=== PATIENT | female | born 1990 | race African-American/Black ===

== ENCOUNTER 2017-06-15 12:49 | Inpatient (IN) ==
--- NOTE | 2017-06-15 13:15 | Emergency Department Note ---
Disposition Clinical Impression: Suicidal ideation Depression Qualifiers: Depression Type: unspecified Qualified Code(s): F32.9 - Major depressive disorder, single episode, unspecified Disposition: Admitted As Inpatient Condition: Fair Forms: ED Satisfaction Letter Time of Disposition: 15:37 Psych HPI - General Chief Complaint: ED Psychiatric Symptoms Stated Complaint: SI Time Seen by Provider: 06/15/17 13:09 Source: patient Mode of arrival: ambulatory Limitations: no limitations Nursing Notes Reviewed: Yes Vital Signs Reviewed: Yes - History of Present Illness HPI Narrative: 26-year-old with a history of some depression and previous drug abuse comes in stating that she feels her life falling apart she is depressed exposed. She is supposed to take Zoloft but cannot take it due to it causes her to have a racing heart. She states she has had no recent drug abuse. She feels depressed and states that she would like to inject herself with narcotics and kill herself. Pt complaint: suicidal ideation, feels depressed If medical clearance, reason: psychiatric condition Onset (ago): day(s) Duration: constant Improves with: none Worsens with: none Context: significant life stressor Alleged intoxication: No Associated Psychiatric Symptoms: depression, suicidal ideation Associated symptoms: Reports: denies other symptoms Traumatic symptoms: denies traumatic injury Treatments prior to arrival: none - Related Data Home Medications Medication Instructions Recorded Confirmed Etonogestrel [Nexplanon] 1 insert PERCUT DAILY 06/18/15 06/18/15 Previous Rx's Medication Instructions Recorded Mupirocin [Bactroban Oint] 1 appl TP BID #1 tube 01/25/16 Sulfamethoxazole/Trimeth DS 1 each PO BID #20 tablet 01/25/16 [Bactrim DS] Ciprofloxacin HCl [Cipro] 500 mg PO BID #14 tablet 03/14/16 Loratadine [Claritin] 10 mg PO DAILY #10 tablet 03/14/16 Phenazopyridine HCl [Pyridium] 200 mg PO TIDAC #6 tab 03/14/16 PredniSONE [Deltasone] 20 mg PO DAILY #15 tablet 03/14/16 Ranitidine Oral Soln [Zantac] 150 mg PO BID #10 mls 03/14/16 hydrOXYzine pamoate [HydrOXYzine 2 tab PO QID PRN #30 capsule 03/14/16 Pamoate] Gabapentin [Neurontin] 300 mg PO TID #9 capsule 03/30/16 Promethazine [Phenergan] 25 mg PO Q6HR #10 tablet 03/30/16 Sulfamethoxazole/Trimeth DS 1 each PO BID #20 tablet 03/30/16 [Bactrim DS] Cephalexin [Keflex] 750 mg PO BID #20 capsule 10/13/16 Ibuprofen [Motrin] 600 mg PO TID PRN #30 tab 10/13/16 Magic Mouthwash [Magic Mouthwash 10 ml PO QID PRN #240 ml 10/13/16 BLM] Ondansetron HCl [Zofran] 4 mg PO Q6H #15 tablet 10/13/16 Albuterol Sulfate [Albuterol 2 puff IH Q4HR PRN #1 hfa.aer.ad 11/12/16 Inhaler] Benzonatate [Tessalon] 100 mg PO TID #15 capsule 11/12/16 Doxycycline 100 mg PO BID 7 Days 11/12/16 Loratadine/Pseudophed (12 HR) 1 each PO BID #24 tab.er.12h 11/12/16 [Claritin D (12HR)] Magic Mouthwash [Magic Mouthwash 10 ml PO QID PRN #240 ml 11/12/16 BLM] Loratadine [Allergy Relief] 10 mg PO DAILY #30 tablet 05/30/17 Sulfamethoxazole/Trimeth DS 1 each PO BID #14 tablet 05/30/17 [Bactrim DS] Allergies Allergy/AdvReac Type Severity Reaction Status Date / Time Penicillins Allergy Hives Verified 06/15/17 12:53 All systems ED: reviewed and negative except as stated. Constitutional: Denies: fever, chills, weakness, weight change Eyes: Denies: eye pain, eye discharge, vision change ENT ED: Denies: ear pain, throat pain, dental pain, hearing loss, epistaxis, congestion, dysphagia Cardiovascular: Denies: chest pain, palpitations, dyspnea on exertion, edema, syncope Respiratory: Denies: cough, dyspnea, wheezes, hemoptysis, stridor Gastrointestinal: Denies: abdominal pain, nausea, vomiting, diarrhea, constipation, hematemesis, melena, hematochezia Genitourinary: Denies: dysuria, frequency, hematuria, discharge Musculoskeletal: Denies: back pain, neck pain, arthralgia, myalgia Integumentary: Denies: rash, abrasion, lesions Neurological: Denies: headache, weakness, numbness, paresthesias, confusion, abnormal gait, vertigo Psychiatric: Reports: depression, suicidal thoughts. Denies: anxiety, homicidal thoughts, auditory hallucinations, visual hallucinations Endocrine: Denies: fatigue Hematological/Lymphatic: Denies: easy bleeding, easy bruising Allergic/Immunologic: Denies: facial swelling, urticaria Past Medical History - Past Medical History Medical history: Reports: migraine, other Surgical history: Reports: no surgical history Psychiatric history: Reports: no psych history CYBER INSTRUCTOR history: Reports: no CYBER INSTRUCTOR history - Social History Smoking Status: Current every day smoker Smokeless Tobacco Status: No Alcohol use: Reports: occasionally Drug use: Reports: IV Drug Use Physical Exam - General Limitations: no limitations General appearance: alert - Head Head exam: atraumatic, normocephalic, normal inspection - Eye Eye exam: Present: normal appearance, PERRL, EOMI - ENT ENT exam: normal exam, normal oropharynx, mucous membranes moist - Neck Neck exam: Present: normal inspection, full ROM, trachea midline - Chest Chest inspection: Present: normal inspection, symmetric chest wall rise - Respiratory Respiratory exam: Present: normal lung sounds bilaterally - Cardiovascular Cardiovascular exam: Present: regular rate, normal rhythm, normal heart sounds - Abdominal Exam Abdominal exam: Present: soft, Non-Tender. Absent: tenderness, distention, guarding, rebound, rigidity - Extremities Exam Extremities exam: Present: normal inspection, full ROM. Absent: tenderness, pedal edema - Expanded Lower Extremity Exam Neurovascular/Tendon exam: Absent: motor deficit, sensory deficit, tendon deficit Gait: observed and normal - Back Exam Back exam: Present: normal inspection, full ROM. Absent: tenderness - Neurological Exam Neurological exam: Present: alert, oriented X3 - Psychiatric Psychiatric exam: Present: normal affect, normal mood - Skin Skin exam: Present: warm, dry, intact, normal color Course - Reevaluation(s) Reevaluation #1: 26-year-old history depression comes in with depression suicidal ideation. Patient does have a plan. Patient will be admitted. Time: 15:37 - Consultations Consultation #1: Discussed with1A, Dr. Alonso indicates the patient will be admitted. Time: 15:37 Vital Signs Temperature 98.4 F 06/15/17 12:53 Pulse Rate 93 08/01/17 12:53 Respiratory Rate 20 06/15/17 12:53 Blood Pressure 140/93 06/15/17 12:53 O2 Sat by Pulse Oximetry 100 06/15/17 12:53 Temperature 98.4 F 06/15/17 12:53 Pulse Rate 93 06/15/17 13:53 Respiratory Rate 20 06/15/17 13:53 Blood Pressure 140/93 06/15/17 13:53 O2 Sat by Pulse Oximetry 100 06/15/17 13:53 Oxygen Delivery Oxygen Delivery Room Air Psych - Lab Data Result diagrams: 06/15/17 13:22 06/15/17 13:22 Lab Results 06/15/17 06/15/17 06/15/17 Range/Units 13:04 13:04 13:22 WBC 9.1 (4.3-11.1) K/mcL RBC 4.40 (3.82-4.97) M/mcL Hgb 12.8 (11.5-15.4) g/dL Hct 39.2 (35.3-44.9) % MCV 89.1 (83.0-100.0) fL MCH 29.1 (28.0-33.3) pg MCHC 32.7 (31.6-35.5) g/dL RDW 13.3 (11.5-14.5) % Plt Count 234 (140-400) K/mcL MPV 9.5 (9.4-12.4) fL Immature Gran % 0.2 (0-4) % Seg Neutrophils % 67.4 % Lymphocytes % 19.5 % Monocytes % 9.4 % Eosinophils % 2.9 % Basophils % 0.6 % Neutrophils # 6.1 (1.6-8.9) K/mcL Lymphocytes # 1.8 (0.6-4.6) K/mcL Monocytes # 0.9 (0.0-1.3) K/mcL Eosinophils # 0.3 (0.0-0.6) K/mcL Basophils # 0.1 (0.0-0.2) K/mcL Sodium (136-145) mEq/L Potassium (3.5-4.5) mEq/L Chloride (98-109) mEq/L Carbon Dioxide (19-29) mEq/L BUN (7-20) mg/dL Creatinine (0.57-1.11) mg/dL Est GFR ( Amer) (> 60) Est GFR (Non-Af Amer) (> 60) BUN/Creatinine Ratio (6-26) Glucose (70-99) mg/dL Calculated Osmolality (280-300) Calcium (8.6-10.8) mg/dL Serum , Qual (Negative) Urine Color Yellow (Yellow) Urine Clarity Clear (Clear) Urine pH 6.0 (5.0-8.0) pH Units Ur Specific [place] 1.022 (1.010-1.025) Urine Protein Trace (Neg-Trace) mg/dL Urine Glucose (UA) Normal (Normal) mg/dL Urine Ketones Trace H (Negative) mg/dL Urine Blood Moderate H (Negative) Urine Nitrite Negative (Negative) Urine Bilirubin Small H (Negative) Urine Urobilinogen Normal (Normal) mg/dL Ur Leukocyte Esterase Trace H (Negative) Urine Microscopic RBC 5-15 H (0-3) per hpf Urine Microscopic WBC 5-15 H (0-3) per hpf Ur Squamous Epith Cells Many H (None-Few) per lpf Urine Bacteria None Seen (None-Few) per hpf Hyaline Casts Few (None-Few) per lpf Salicylates (15-30) mg/dL Urine Opiates Screen Negative (Ypixdd=662) ng/mL Acetaminophen (10-30) mcg/mL Ur Barbiturates Screen Negative (Ombnrw=356) ng/mL Ur Phencyclidine Scrn Negative (Cutoff=25) ng/mL Ur Amphetamines Screen Positive H (Jlcork=4237) ng/mL U Benzodiazepines Scrn Positive H (Bgvmsp=017) ng/mL Urine Cocaine Screen Positive H (Cutoff= 300) ng/mL U Marijuana (THC) Screen Positive H (Cutoff = 50) ng/mL Ethyl Alcohol (0-10) mg/dL 06/15/17 06/15/17 Range/Units 13:22 13:22 WBC (4.3-11.1) K/mcL RBC (3.82-4.97) M/mcL Hgb (11.5-15.4) g/dL Hct (35.3-44.9) % MCV (83.0-100.0) fL MCH (28.0-33.3) pg MCHC (31.6-35.5) g/dL RDW (11.5-14.5) % Plt Count (140-400) K/mcL MPV (9.4-12.4) fL Immature Gran % (0-4) % Seg Neutrophils % % Lymphocytes % % Monocytes % % Eosinophils % % Basophils % % Neutrophils # (1.6-8.9) K/mcL Lymphocytes # (0.6-4.6) K/mcL Monocytes # (0.0-1.3) K/mcL Eosinophils # (0.0-0.6) K/mcL Basophils # (0.0-0.2) K/mcL Sodium 141 (136-145) mEq/L Potassium 3.2 L (3.5-4.5) mEq/L Chloride 108 (98-109) mEq/L Carbon Dioxide 26 (19-29) mEq/L BUN 9 (7-20) mg/dL Creatinine 0.87 (0.57-1.11) mg/dL Est GFR ( Amer) > 60 (> 60) Est GFR (Non-Af Amer) > 60 (> 60) BUN/Creatinine Ratio 10 (6-26) Glucose 96 (70-99) mg/dL Calculated Osmolality 291 (280-300) Calcium 9.4 (8.6-10.8) mg/dL Serum , Qual Negative (Negative) Urine Color (Yellow) Urine Clarity (Clear) Urine pH (5.0-8.0) pH Units Ur Specific [place] (1.010-1.025) Urine Protein (Neg-Trace) mg/dL Urine Glucose (UA) (Normal) mg/dL Urine Ketones (Negative) mg/dL Urine Blood (Negative) Urine Nitrite (Negative) Urine Bilirubin (Negative) Urine Urobilinogen (Normal) mg/dL Ur Leukocyte Esterase (Negative) Urine Microscopic RBC (0-3) per hpf Urine Microscopic WBC (0-3) per hpf Ur Squamous Epith Cells (None-Few) per lpf Urine Bacteria (None-Few) per hpf Hyaline Casts (None-Few) per lpf Salicylates < 5.0 L (15-30) mg/dL Urine Opiates Screen ([place]=560) ng/mL Acetaminophen < 1.0 L (10-30) mcg/mL Ur Barbiturates Screen (Nibmvd=816) ng/mL Ur Phencyclidine Scrn (Cutoff=25) ng/mL Ur Amphetamines Screen (Lamidu=6444) ng/mL U Benzodiazepines Scrn (Qxlwgf=797) ng/mL Urine Cocaine Screen (Cutoff= 300) ng/mL U Marijuana (THC) Screen (Cutoff = 50) ng/mL Ethyl Alcohol < 10 (0-10) mg/dL Psychiatric Medical Clearance - Medical Clearance Checklist Medical History: No Social History Section defined Current Vitals: Last Vital Signs Temp 98.4 F 06/15/17 12:53 Pulse 93 06/15/17 13:53 Resp 20 06/15/17 13:53 BP 140/93 06/15/17 13:53 Pulse Ox 100 06/15/17 13:53 Psychiatric Lab Panel: Drug Levels and Toxicity 06/15/17 06/15/17 13:04 13:22 Urine Opiates Screen Negative Acetaminophen < 1.0 L Ur Barbiturates Screen Negative Ur Phencyclidine Scrn Negative Ur Amphetamines Screen Positive H U Benzodiazepines Scrn Positive H Urine Cocaine Screen Positive H U Marijuana (THC) Screen Positive H Ethyl Alcohol < 10 Abnormal Labs: Abnormal lab results Potassium 3.2 mEq/L (3.5-4.5) L 06/15/17 13:22 Urine Ketones Trace mg/dL (Negative) H 06/15/17 13:04 Urine Blood Moderate (Negative) H 06/15/17 13:04 Urine Bilirubin Small (Negative) H 06/15/17 13:04 Ur Leukocyte Esterase Trace (Negative) H 06/15/17 13:04 Urine Microscopic RBC 5-15 per hpf (0-3) H 06/15/17 13:04 Urine Microscopic WBC 5-15 per hpf (0-3) H 06/15/17 13:04 Ur Squamous Epith Cells Many per lpf (None-Few) H 06/15/17 13:04 Salicylates < 5.0 mg/dL (15-30) L 06/15/17 13:22 Acetaminophen < 1.0 mcg/mL (10-30) L 06/15/17 13:22 Ur Amphetamines Screen Positive ng/mL (Vxzggx=6816) H 06/15/17 13:04 U Benzodiazepines Scrn Positive ng/mL (Kiixph=989) H 06/15/17 13:04 Urine Cocaine Screen Positive ng/mL (Cutoff= 300) H 06/15/17 13:04 U Marijuana (THC) Screen Positive ng/mL (Cutoff = 50) H 06/15/17 13:04 Statement of Medical Clearance: I have evaluated the patient, reviewed diagnostic information, and certify that the patient's medical condition is sufficiently stable that transfer to the psychiatric unit does not pose a significant risk of deterioration.
[2017-06-15 13:29] LABS: Basophils # 0.1 K/mcL (0.0-0.2); Basophils % 0.6 %; Eosinophils # 0.3 K/mcL (0.0-0.6); Eosinophils % 2.9 %; Hematocrit 39.2 % (35.3-44.9); Hemoglobin 12.8 g/dL (11.5-15.4); Immature Granulocytes % 0.2 % (0-4); Lymphocytes # 1.8 K/mcL (0.6-4.6); Lymphocytes % 19.5 %; Mean Corpuscular HGB Conc 32.7 g/dL (31.6-35.5); Mean Corpuscular Hemoglobin 29.1 pg (28.0-33.3); Mean Corpuscular Volume 89.1 fL (83.0-100.0); Mean Platelet Volume 9.5 fL (9.4-12.4); Monocytes # 0.9 K/mcL (0.0-1.3); Monocytes % 9.4 %; Neutrophils # 6.1 K/mcL (1.6-8.9); Platelet Count 234 K/mcL (140-400); Red Cell Distribution Width 13.3 % (11.5-14.5); Segmented Neutrophils % 67.4 %
[2017-06-15 13:32] LABS: Bilirubin,Urine Small (Negative); Blood,Urine Moderate (Negative); Clarity,Urine Clear (Clear); Color,Urine Yellow (Yellow); Glucose,Urine (UA) Normal (Normal); Ketones,Urine Trace mg/dL (Negative); Leukocyte Esterase,Urine Trace (Negative); Nitrite,Urine Negative (Negative); Protein,Urine Trace mg/dL (Neg-Trace); Specific Gravity,Urine 1.022 (1.010-1.025); Urobilinogen,Urine Normal (Normal)
[2017-06-15 13:34] LABS: Bacteria,Urine None Seen per hpf (None-Few); Hyaline Casts,Urine Few per lpf (None-Few); Squamous Epithelial Cell,Urine Many per lpf (None-Few)
[2017-06-15 13:39] LABS: Amphetamine Screen,Urine Positive ng/mL (Cutoff=1000); Barbiturate Screen,Urine Negative ng/mL (Cutoff=200); Benzodiazepines Screen,Urine Positive ng/mL (Cutoff=200); Cannabinoid Screen,Urine Positive ng/mL (Cutoff = 50); Cocaine Screen,Urine Positive ng/mL (Cutoff= 300); Opiate Screen,Urine Negative ng/mL (Cutoff=300); Phencyclidine Screen,Urine Negative ng/mL (Cutoff=25)
[2017-06-15 13:44] LABS: Acetaminophen < 1.0 mcg/mL (10-30); BUN/Creatinine Ratio 10 (6-26); Blood Urea Nitrogen 9 mg/dL (7-20); Calcium 9.4 mg/dL (8.6-10.8); Carbon Dioxide 26 mEq/L (19-29); Chloride 108 mEq/L (98-109); Ethanol < 10 mg/dL (0-10); Glucose 96 mg/dL (70-99); Osmolality,Calculated 291 (280-300); Potassium 3.2 mEq/L (3.5-4.5); Salicylate < 5.0 mg/dL (15-30); Sodium 141 mEq/L (136-145); eGFR For African Americans > 60 (> 60); eGFR For Non-African Americans > 60 (> 60)
[2017-06-15] MEDS ORDERED: Haloperidol Lactate 5 MG/ML VIAL IM PRN (16:24)
[2017-06-15] MEDS ORDERED: *HR* LORazepam 2 MG/ML VIAL IM PRN (16:24)
[2017-06-15] MEDS ORDERED: *HR* LORazepam 1 MG TABLET PO PRN (16:24)
[2017-06-15] MEDS ORDERED: MOM Conc 10 ML UD.LIQ PO PRN (16:24)
[2017-06-15] MEDS ORDERED: Ibuprofen 400 MG TABLET PO PRN (16:24)
[2017-06-15] MEDS ORDERED: Mag Hydrox/Al Hydrox/Simeth 30 ML UDC PO PRN (16:24)
[2017-06-15] MEDS: traZODone 50 MG TABLET PO PRN (21:53)
[2017-06-16] MEDS: hydrOXYzine pamoate 25 MG CAPSULE PO PRN ×3 (00:42→22:52)
--- NOTE | 2017-06-16 10:25 | Psychiatry History & Physical ---
Date of Encounter: 06/16/17 Time of Encounter: 10:00 History of Present Illness Patient Stated Chief Complaint: "I am depressed." Medicare Admission Attestation: For traditional Medicare patients the provided hospital inpatient services are reasonable and necessary and in the case of services not specified as inpatient -only under 42 CFR 419.22 (n), that they are appropriately provided as inpatient services in accordance 42 CFR 412.3. For Critical Access Hospital the patient may reasonably be expected to be discharged or transferred to a hospital within 96 hours after admission to the Critical [facility]. History of Present Illness: Ms. Reddy is a 26 year old female with a reported history of depression and anxiety as well as polysubstance abuse who presented to the hospital with increasing depression and suicidal ideations. Patient reports that she has been feeling depressed for a long time and she has received outpatient treatment for this. Over the past 3 days she has had suicidal ideation that has worsened area or plan was to take fentanyl in an overdose attempt. Patient states that her children are with her aunt because she feels she cannot take care of them. She claims she still has custody of her children. She reports difficulty sleeping, both falling asleep and staying asleep. She reports she feels scared and anxious all the time. Also reports that she feels "living is pointless." She reports intermittent panic attacks but is unable to describe how the panic attacks feel. She drinks and uses cocaine as well as cannabis. Patient denies other drug use but urine drug screen was also positive for amphetamines and benzodiazepines. Patient does not think her drug use is an issue because "I have already been to rehabilitation." She continues to endorse feelings of hopelessness and frustration. Past Med Surg Social Fam HX - Past Medical History Medical history: migraine, other - Past Psychiatric History Psychiatric history: Reports: anxiety, depression, PTSD. Denies: prior suicide attempt, previous psychiatric hospitalization Past psychiatric history details: Tried prozac, lexapro, zoloft. No meds helped. Family psychiatric history: Yes Family Psychiatric History Details: Substance use in family. Family History of Suicide: None - Past Surgical History Surgical History: no surgical history - Social History Smoking Status: Current every day smoker Smokeless Tobacco Status: No Alcohol use: occasionally Drug use: cocaine, marijuana, methamphetamine, IV Drug Use Occupational status: unemployed Current living situation: Home, With Family Activity Level: Independent ambulation Medications & Allergies No Known Home Drugs 06/15/17 [History] Allergies Penicillins Allergy (Verified 06/15/17 12:53) Hives Review of Systems Constitutional: Denies: fever, chills, weakness, weight change Eyes: Denies: eye pain, vision change Ears, Nose, Throat: Denies: ear pain, throat pain, dental pain, hearing loss, congestion Cardiovascular: Denies: chest pain, palpitations, dyspnea on exertion Respiratory: Denies: cough, dyspnea, wheezes Gastrointestinal: Denies: abdominal pain, nausea, vomiting, diarrhea, constipation Genitourinary male: Denies: urgency, dysuria, frequency, genital lesions Genitourinary female: Denies: urgency, dysuria, frequency, abnormal menses, dyspareunia Musculoskeletal: Denies: joint swelling, joint pain Integumentary: Denies: rash, lesions, pruritus Neurological: Denies: headache, weakness, numbness, memory loss Psychiatric: Reports: depression, anxiety, abnormal sleep pattern, suicidal ideation, difficulty concentrating, hopelessness, irritability Endocrine: Denies: fatigue, heat or cold intolerance Hematologic/Lymphatic: Denies: easy bruising, lymphadenopathy Allergic/Immunologic: Denies: urticaria, itchy eyes Mental Status Exam Patient orientation: Yes Person, Yes Time, Yes Place Level of alertness: Alert Patient appearance: Disheveled Behavior: calm, cooperative Psychomotor activity: Normal Eye contact: Maintains Eye Contact Mood description: Depressed Affect description: congruent with mood, dysphoric Speech pattern: Normal rate, Normal rhythm, Normal tone Speech volume: Normal Thought process: Intact Thought content: Yes Suicidal ideation Perceptual disturbances: No Auditory hallucinations, No Visual hallucinations Attention span: Capable of Focused Attention Memory description: Grossly Intact Patient reliability: Questionable Historian Intelligence estimate: Average Judgment: Limited Insight: Minimal Exam - HEENT Head exam IM: Present: atraumatic Eye exam IM: Present: EOMI - Neurological Neurological exam IM: Present: CN II-XII intact - Extremities Extremities exam IM: Present: full ROM - Skin Skin exam IM: Present: dry, warm Results - Vital Signs Vital signs: Temp Pulse Resp BP Pulse Ox 97.4 F L 67 14 110/76 100 06/16/17 08:43 06/16/17 08:43 06/16/17 08:43 06/16/17 08:43 06/15/17 13:53 - Labs Labs: Laboratory Last Values WBC 9.1 K/mcL (4.3-11.1) 06/15/17 13:22 RBC 4.40 M/mcL (3.82-4.97) 06/15/17 13:22 Hgb 12.8 g/dL (11.5-15.4) 06/15/17 13:22 Hct 39.2 % (35.3-44.9) 06/15/17 13:22 MCV 89.1 fL (83.0-100.0) 06/15/17 13:22 MCH 29.1 pg (28.0-33.3) 06/15/17 13:22 MCHC 32.7 g/dL (31.6-35.5) 06/15/17 13:22 RDW 13.3 % (11.5-14.5) 06/15/17 13:22 Plt Count 234 K/mcL (140-400) 06/15/17 13:22 MPV 9.5 fL (9.4-12.4) 06/15/17 13:22 Immature Gran % 0.2 % (0-4) 06/15/17 13:22 Seg Neutrophils % 67.4 % 06/15/17 13:22 Lymphocytes % 19.5 % 06/15/17 13:22 Monocytes % 9.4 % 06/15/17 13:22 Eosinophils % 2.9 % 06/15/17 13:22 Basophils % 0.6 % 06/15/17 13:22 Neutrophils # 6.1 K/mcL (1.6-8.9) 06/15/17 13:22 Lymphocytes # 1.8 K/mcL (0.6-4.6) 06/15/17 13:22 Monocytes # 0.9 K/mcL (0.0-1.3) 06/15/17 13:22 Eosinophils # 0.3 K/mcL (0.0-0.6) 06/15/17 13:22 Basophils # 0.1 K/mcL (0.0-0.2) 06/15/17 13:22 Sodium 141 mEq/L (136-145) 06/15/17 13:22 Potassium 3.2 mEq/L (3.5-4.5) L 06/15/17 13:22 Chloride 108 mEq/L (98-109) 06/15/17 13:22 Carbon Dioxide 26 mEq/L (19-29) 06/15/17 13:22 BUN 9 mg/dL (7-20) 06/15/17 13:22 Creatinine 0.87 mg/dL (0.57-1.11) 06/15/17 13:22 Est GFR ( Amer) > 60 (> 60) 06/15/17 13:22 Est GFR (Non-Af Amer) > 60 (> 60) 06/15/17 13:22 BUN/Creatinine Ratio 10 (6-26) 06/15/17 13:22 Glucose 96 mg/dL (70-99) 06/15/17 13:22 Calculated Osmolality 291 (280-300) 06/15/17 13:22 Calcium 9.4 mg/dL (8.6-10.8) 06/15/17 13:22 Serum , Qual Negative (Negative) 06/15/17 13:22 Urine Color Yellow (Yellow) 06/15/17 13:04 Urine Clarity Clear (Clear) 06/15/17 13:04 Urine pH 6.0 pH Units (5.0-8.0) 06/15/17 13:04 Ur Specific [place] 1.022 (1.010-1.025) 06/15/17 13:04 Urine Protein Trace mg/dL (Neg-Trace) 06/15/17 13:04 Urine Glucose (UA) Normal mg/dL (Normal) 06/15/17 13:04 Urine Ketones Trace mg/dL (Negative) H 06/15/17 13:04 Urine Blood Moderate (Negative) H 06/15/17 13:04 Urine Nitrite Negative (Negative) 06/15/17 13:04 Urine Bilirubin Small (Negative) H 06/15/17 13:04 Urine Urobilinogen Normal mg/dL (Normal) 06/15/17 13:04 Ur Leukocyte Esterase Trace (Negative) H 06/15/17 13:04 Urine Microscopic RBC 5-15 per hpf (0-3) H 06/15/17 13:04 Urine Microscopic WBC 5-15 per hpf (0-3) H 06/15/17 13:04 Ur Squamous Epith Cells Many per lpf (None-Few) H 06/15/17 13:04 Urine Bacteria None Seen per hpf (None-Few) 06/15/17 13:04 Hyaline Casts Few per lpf (None-Few) 06/15/17 13:04 Salicylates < 5.0 mg/dL (15-30) L 06/15/17 13:22 Urine Opiates Screen Negative ng/mL (Qwxcdg=272) 06/15/17 13:04 Acetaminophen < 1.0 mcg/mL (10-30) L 06/15/17 13:22 Ur Barbiturates Screen Negative ng/mL (Zbliam=784) 06/15/17 13:04 Ur Phencyclidine Scrn Negative ng/mL (Cutoff=25) 06/15/17 13:04 Ur Amphetamines Screen Positive ng/mL (Nmccxy=3981) H 06/15/17 13:04 U Benzodiazepines Scrn Positive ng/mL (Ffcpjj=645) H 06/15/17 13:04 Urine Cocaine Screen Positive ng/mL (Cutoff= 300) H 06/15/17 13:04 U Marijuana (THC) Screen Positive ng/mL (Cutoff = 50) H 06/15/17 13:04 Ethyl Alcohol < 10 mg/dL (0-10) 06/15/17 13:22 Assessment and Plan (1) Depression Current visit: Yes Status: Acute Plan: Admit inpatient for safety and stabilization, Close observation, Suicide Precautions per unit protocol, Encourage participation in unit milieu, Group Therapy, Monitor sleep, Monitor appetite Additional Plan: We will admit to 1 a for psychiatric stabilization. The patient was incorporated into the therapeutic milieu and offer group and individual as well as recreational therapy. Start Cymbalta for depression. Increase trazodone for sleep. Attempt to educate patient on the importance of discontinuing drug and alcohol use and its effect on mood. Risks, benefits, side effects, alternatives discussed w/pt: Yes Patient agreeable to treatment: Yes Estimated Length of Stay (Days): 3 Qualifiers: Depression Type: major depressive disorder Major depression recurrence: recurrent Active/Remission status: currently active Major depression episode severity: severe Psychotic features: without psychotic features Qualified Code(s): F33.2 - Major depressive disorder, recurrent severe without psychotic features (2) Anxiety Current visit: Yes Status: Acute Plan: Admit inpatient for safety and stabilization, Close observation, Suicide Precautions per unit protocol, Encourage participation in unit milieu, Group Therapy, Monitor sleep, Monitor appetite Additional Plan: Encourage positive coping strategies. No control substances for anxiety. Vistaril as needed. Encourage group attendance. Risks, benefits, side effects, alternatives discussed w/pt: Yes Patient agreeable to treatment: Yes (3) Polysubstance (excluding opioids) dependence Current visit: Yes Status: Acute Plan: Admit inpatient for safety and stabilization, Close observation, Suicide Precautions per unit protocol, Encourage participation in unit milieu, Group Therapy, Monitor sleep, Monitor appetite Additional Plan: Patient admits to using multiple substances including cocaine, cannabis, alcohol regularly. Urine tox is also positive for several other drugs. Continue to monitor for potential withdrawal. Encouraged patient to consider rehabilitation. At this point patient has little to no insight into her substance use. Risks, benefits, side effects, alternatives discussed w/pt: Yes Patient agreeable to treatment: Yes
[2017-06-16] MEDS: valACYclovir 500 MG TABLET PO SCH ×2 (13:54→21:35)
[2017-06-16] MEDS: traZODone 50 MG TABLET PO PRN (21:36)
[2017-06-17] MEDS: valACYclovir 500 MG TABLET PO SCH ×2 (08:32→20:46)
--- NOTE | 2017-06-17 10:54 | Psychiatry Progress Note ---
Date of Encounter: 06/17/17 Time of Encounter: 09:00 Subjective Interval history: Patient seen today for follow-up. Discussed in treatment team. Patient reports continued depression with suicidal thoughts. She is withdrawn to her room much of the day. She did have some interaction yesterday and had difficulty interacting with peers at times. She denies side effects of medications at present. She slept a little bit better with the trazodone. Patient denies a plan to hurt herself at this time. Encourage group attendance. Review of Systems Constitutional: Denies: fever, chills, weakness, weight change Eyes: Denies: eye pain, vision change Ears, Nose, Throat: Denies: ear pain, throat pain, dental pain, hearing loss, congestion Cardiovascular: Denies: chest pain, palpitations, dyspnea on exertion Respiratory: Denies: cough, dyspnea, wheezes Gastrointestinal: Denies: abdominal pain, nausea, vomiting, diarrhea, constipation Musculoskeletal: Denies: joint swelling, joint pain Neurological: Denies: headache, weakness, numbness, memory loss Psychiatric: Reports: depression, anxiety, abnormal sleep pattern, suicidal ideation, difficulty concentrating, hopelessness, irritability Objective: Exam Patient orientation: Yes Person, Yes Time, Yes Place Level of alertness: Alert Patient appearance: Unkempt Behavior: calm Psychomotor activity: Normal Eye contact: Diverts Contact Mood description: Depressed Affect description: constricted, dysphoric Speech pattern: Normal rate, Normal rhythm, Normal tone Speech volume: Normal Thought process: Intact Thought content: Yes Suicidal ideation, No Homicidal ideation Perceptual disturbances: No Auditory hallucinations, No Visual hallucinations Judgment: Limited Insight: Minimal Results - Vital Signs Vital Signs: Temp Pulse Resp BP Pulse Ox 97.4 F L 69 14 130/75 100 06/17/17 08:12 06/17/17 08:12 06/17/17 08:12 06/17/17 08:12 06/15/17 13:53 Assessment and Plan (1) Depression Current visit: Yes Status: Acute Plan: Continue hospitalization, Close observation, Suicide Precautions per unit protocol, Encourage participation in unit milieu, Group Therapy, Monitor sleep, Monitor appetite Additional Plan: Encourage group attendance. Continue Cymbalta for depression. Continue trazodone for sleep. . Risks, benefits, side effects, alternatives discussed w/pt: Yes Patient agreeable to treatment: Yes Qualifiers: Depression Type: major depressive disorder Major depression recurrence: recurrent Active/Remission status: currently active Major depression episode severity: severe Psychotic features: without psychotic features Qualified Code(s): F33.2 - Major depressive disorder, recurrent severe without psychotic features (2) Anxiety Current visit: Yes Status: Acute Plan: Continue hospitalization, Close observation, Suicide Precautions per unit protocol, Encourage participation in unit milieu, Group Therapy, Monitor sleep, Monitor appetite Additional Plan: Vistaril as needed. Encourage group attendance. Risks, benefits, side effects, alternatives discussed w/pt: Yes Patient agreeable to treatment: Yes (3) Polysubstance (excluding opioids) dependence Current visit: Yes Status: Acute Risks, benefits, side effects, alternatives discussed w/pt: Yes Patient agreeable to treatment: Yes Consult Discharge Plan - Plan Referrals: [facility] [Outside] - 07/01/17 10:30 am (The above appointment is with Veronica Rdz, counselor at [facility]'s [facility]. Your first appointment will be very thorough and the total appointment time will take between two and three hours. You will be completing paperwork, meeting with a counselor and a nurse, and developing a treatment plan. You will receive follow- up appointments for on-going services , which could include community support, mental health and substance abuse counseling, groups/partial hospitalization programming, medication assisted treatment, and psychiatric medication management. Please bring the following with you to your first visit to the clinic: 1) proof of household income (two consecutive pay stubs, social security award letter, bank statement, statement letter from [facility], child support statement, IRS 1040 or W2 form, or a statement from the person who financially supports you stating they help provide for your basic needs), 2) proof of residency (drivers license, a piece of mail showing your address, a statement from person you live with verifying you live at their address), 3) your social security card, 4) photo ID, and 5) your insurance card (if you have commercial insurance you must call to obtain a prior authorization number before you arrive to your first appointment). If you do not bring these items, you will not be seen.) Babs Winters [Advanced Practice Nurse] - 06/25/17 10:00 am (The above appointment is with Babs Winters CNP, at [facility]. This appointment is to establish you with a primary care provider. Your needs for medication and/or Vivitrol will be assessed and treated as indicated as well. Please arrive 15 minutes early to complete paperwork. Please bring your insurance card, photo ID and list of current medications to your first appointment. This is the first available appointment. You may contact the office regularly to check for cancellations that may allow you to be seen sooner. )
[2017-06-17] MEDS: hydrOXYzine pamoate 25 MG CAPSULE PO PRN (15:31)
[2017-06-17] MEDS: traZODone 50 MG TABLET PO PRN (20:46)
[2017-06-18] MEDS: valACYclovir 500 MG TABLET PO SCH ×2 (08:45→20:12)
--- NOTE | 2017-06-18 13:53 | Psychiatry Progress Note ---
Date of Encounter: 06/18/17 Time of Encounter: 13:30 Subjective Interval history: Patient seen today for follow-up. She reports some improvement in her mood. She states that she has had some reflux which has been uncomfortable but this comes and goes for her normally. We discussed that this could be exacerbated by the medication as well. Patient reports she is sleeping pretty well. She does mainly remained withdrawn to her room but states that some of the other patients are loud and cause her to feel uncomfortable when she is in a group setting. She denies suicidal ideations today. She is feeling more hopeful about the future. Review of Systems Psychiatric: Reports: depression, anxiety, difficulty concentrating, irritability Objective: Exam Patient orientation: Yes Person, Yes Time, Yes Place Level of alertness: Alert Behavior: calm, cooperative Psychomotor activity: Normal Eye contact: Maintains Eye Contact Mood description: Depressed Affect description: congruent with mood Speech pattern: Normal rate, Normal rhythm, Normal tone Speech volume: Normal Thought process: Intact, Goal Oriented Thought content: No Suicidal ideation, No Homicidal ideation Perceptual disturbances: No Auditory hallucinations, No Visual hallucinations Judgment: Limited Insight: Partial Results - Vital Signs Vital Signs: Temp Pulse Resp BP Pulse Ox 97.5 F L 62 16 128/74 100 06/18/17 08:27 06/18/17 08:27 06/18/17 08:27 06/18/17 08:27 06/15/17 13:53 Assessment and Plan (1) Depression Current visit: Yes Status: Acute Plan: Continue hospitalization, Close observation, Suicide Precautions per unit protocol, Encourage participation in unit milieu, Group Therapy, Monitor sleep, Monitor appetite Additional Plan: Continue Cymbalta. Offer omeprazole for reflux. Encourage group attendance. Risks, benefits, side effects, alternatives discussed w/pt: Yes Patient agreeable to treatment: Yes Qualifiers: Depression Type: major depressive disorder Major depression recurrence: recurrent Active/Remission status: currently active Major depression episode severity: severe Psychotic features: without psychotic features Qualified Code(s): F33.2 - Major depressive disorder, recurrent severe without psychotic features (2) Anxiety Current visit: Yes Status: Acute Risks, benefits, side effects, alternatives discussed w/pt: Yes Patient agreeable to treatment: Yes (3) Polysubstance (excluding opioids) dependence Current visit: Yes Status: Acute Risks, benefits, side effects, alternatives discussed w/pt: Yes Patient agreeable to treatment: Yes Consult Discharge Plan - Plan Referrals: [facility] [Outside] - 07/01/17 10:30 am (The above appointment is with Veronica Rdz, counselor at [facility]'s [facility]. Your first appointment will be very thorough and the total appointment time will take between two and three hours. You will be completing paperwork, meeting with a counselor and a nurse, and developing a treatment plan. You will receive follow- up appointments for on-going services , which could include community support, mental health and substance abuse counseling, groups/partial hospitalization programming, medication assisted treatment, and psychiatric medication management. Please bring the following with you to your first visit to the clinic: 1) proof of household income (two consecutive pay stubs, social security award letter, bank statement, statement letter from [facility], child support statement, IRS 1040 or W2 form, or a statement from the person who financially supports you stating they help provide for your basic needs), 2) proof of residency (drivers license, a piece of mail showing your address, a statement from person you live with verifying you live at their address), 3) your social security card, 4) photo ID, and 5) your insurance card (if you have commercial insurance you must call to obtain a prior authorization number before you arrive to your first appointment). If you do not bring these items, you will not be seen.) Babs Winters [Advanced Practice Nurse] - 06/25/17 10:00 am (The above appointment is with Babs Winters CNP, at [facility]. This appointment is to establish you with a primary care provider. Your needs for medication and/or Vivitrol will be assessed and treated as indicated as well. Please arrive 15 minutes early to complete paperwork. Please bring your insurance card, photo ID and list of current medications to your first appointment. This is the first available appointment. You may contact the office regularly to check for cancellations that may allow you to be seen sooner. )
[2017-06-18] MEDS: hydrOXYzine pamoate 25 MG CAPSULE PO PRN ×2 (17:45→21:43)
[2017-06-18] MEDS: traZODone 50 MG TABLET PO PRN (21:43)
[2017-06-19 08:31] VITALS: BP 124/64
[2017-06-19] MEDS: valACYclovir 500 MG TABLET PO SCH (09:09)
[2017-06-19] MEDS: hydrOXYzine pamoate 25 MG CAPSULE PO PRN (12:02)
--- NOTE | 2017-06-19 12:17 | Discharge Summary ---
Date of Encounter: 06/19/17 Time of Encounter: 11:30 Diagnosis - Discharge Diagnosis (1) Depression Priority: Primary Status: Acute Qualifiers: Depression Type: major depressive disorder Major depression recurrence: recurrent Active/Remission status: currently active Major depression episode severity: severe Psychotic features: without psychotic features Qualified Code(s): F33.2 - Major depressive disorder, recurrent severe without psychotic features (2) Anxiety Priority: Secondary Status: Acute (3) Polysubstance (excluding opioids) dependence Priority: Secondary Status: Acute Medications - Discharge Medications Prescriptions: DULoxetine [Cymbalta] 30 mg PO DAILY #30 Omeprazole [PriLOSEC] 20 mg PO DAILY@0730 #30 cap traZODone [TraZODone] 50 mg PO HS PRN #30 tab PRN Reason: Insomnia valACYclovir [Valtrex] 1,000 mg PO BID #14 tab DULoxetine [Cymbalta] 30 mg PO DAILY #30 06/19/17 [Rx] Omeprazole [PriLOSEC] 20 mg PO DAILY@0730 #30 cap 06/19/17 [Rx] traZODone [TraZODone] 50 mg PO HS PRN #30 tab 06/19/17 [Rx] valACYclovir [Valtrex] 1,000 mg PO BID #14 tab 06/19/17 [Rx] Allergies Penicillins Allergy (Verified 06/15/17 12:53) Hives Provider Date of admission: 06/15/17 15:56 Primary care physician: PCP NONE Discharging clinician: Kirsty Strickland Assessment and Plan - Patient/Caregiver Discharge Instructions Activity: resume usual activities as tolerated Diet: regular diet - Follow up Plan Follow up with: [facility] [Outside] - 07/01/17 10:30 am (The above appointment is with Veronica Rdz, counselor at [facility]'s [facility]. Your first appointment will be very thorough and the total appointment time will take between two and three hours. You will be completing paperwork, meeting with a counselor and a nurse, and developing a treatment plan. You will receive follow- up appointments for on-going services , which could include community support, mental health and substance abuse counseling, groups/partial hospitalization programming, medication assisted treatment, and psychiatric medication management. Please bring the following with you to your first visit to the clinic: 1) proof of household income (two consecutive pay stubs, social security award letter, bank statement, statement letter from [facility], child support statement, IRS 1040 or W2 form, or a statement from the person who financially supports you stating they help provide for your basic needs), 2) proof of residency (drivers license, a piece of mail showing your address, a statement from person you live with verifying you live at their address), 3) your social security card, 4) photo ID, and 5) your insurance card (if you have commercial insurance you must call to obtain a prior authorization number before you arrive to your first appointment). If you do not bring these items, you will not be seen.) Babs Winters [Advanced Practice Nurse] - 06/25/17 10:00 am (The above appointment is with Babs Winters CNP, at [facility]. This appointment is to establish you with a primary care provider. Your needs for medication and/or Vivitrol will be assessed and treated as indicated as well. Please arrive 15 minutes early to complete paperwork. Please bring your insurance card, photo ID and list of current medications to your first appointment. This is the first available appointment. You may contact the office regularly to check for cancellations that may allow you to be seen sooner. ) Functional capacity at discharge: independent ambulation Overall status at discharge: Stable Disposition: Home, Self-Care Hospital Course Hospital course: Ms. Reddy is a 26 year old female with a history of polysubstance abuse, depression, anxiety who presented to the hospital with increasing depression and suicidal ideations. Patient was admitted to for psychiatric stabilization. She was incorporated into the therapeutic milieu and offer group and individual as well as recreational therapy. She was also offered psychoeducational materials and supportive therapy. She was placed on suicide precautions and close observation per unit protocol. Patient was started on Cymbalta 30 mg by mouth daily. She tolerated this medication well. She took trazodone for sleep which helped with this. Throughout the course of hospital stay the patient's mood improved. She did attend some group and unit activities. She did process some issues about family with our social group worker. At the time of discharge patient reported overall feeling more hopeful about life. She is willing to work with her aunt on discharge to make sure that she continues with mental health follow-up. We did discuss the importance of sobriety and maintaining good mental health. She denied suicidal or homicidal ideation, intent, or plan at the time of discharge. She is discharged in stable condition. - Time Spent with Patient Total time spent providing and/or coordinating discharge services: Less than 30 minutes Quality - Multiple Antipsychotics Patient discharged on 2 or more antipsychotic medications: No Procedures - Procedures Procedures: Medication Management, Crisis Stabilization, Supportive Therapy, Group Therapy, Psychoeducational Therapy Mental Status Exam - Mental Status Exam Patient orientation: Yes Person, Yes Time, Yes Place Level of alertness: Alert Patient appearance: Appropriate, Well Groomed Behavior: calm, cooperative Psychomotor activity: Normal Eye contact: Maintains Eye Contact Mood description: Euthymic/stable Affect description: congruent with mood, full range Speech pattern: Normal rate, Normal rhythm, Normal tone Speech Volume: Normal Thought process: Linear, Goal Oriented Thought Content: No Suicidal ideation, No Homicidal ideation, No Overt delusions Perceptual Disturbances: No Auditory hallucinations, No Visual hallucinations Judgment: Limited Insight: Partial
== END 2017-06-19 14:45 | disposition home or self-care (01) | DRG 751 ==
LOC: EMEROO 12:49 → 1ANU 15:56
PROVIDERS: ADMIT Student in an Organized Health Care Education/Training Program; ATTEND Student in an Organized Health Care Education/Training Program

== ENCOUNTER 2022-06-04 20:45 | Observation (INO) ==
[2022-06-05] MEDS ORDERED: 0.9 % Sodium Chloride 1,000 ML IV ONE (00:04)
[2022-06-05 00:18] LABS: Bacteria,Urine Few per hpf (None-Few); Bilirubin,Urine Negative (Negative); Blood,Urine Negative (Negative); Clarity,Urine Clear (Clear); Color,Urine Light-Yellow (Yellow); Glucose,Urine (UA) Normal (Normal); Ketones,Urine Negative (Negative); Leukocyte Esterase,Urine Trace (Negative); Mucus,Urine Few per lpf (None-Few); Nitrite,Urine Negative (Negative); Protein,Urine Negative (Neg-Trace); RBC,Urine 0-3 per hpf (0-3); Squamous Epithelial Cell,Urine Moderate per hpf (None-Few); Urobilinogen,Urine Normal (Normal)
[2022-06-05 00:36] LABS: Basophils % 0.2 %; Eosinophils # 0.1 K/mcL (0.0-0.6); Eosinophils % 1.3 %; Hematocrit 33.2 % (35.3-44.9); Hemoglobin 11.1 g/dL (11.5-15.4); Immature Granulocytes % 0.2 % (0-4); Lymphocytes # 3.1 K/mcL (0.6-4.6); Lymphocytes % 35.8 %; Mean Corpuscular HGB Conc 33.4 g/dL (31.6-35.5); Mean Corpuscular Hemoglobin 30.2 pg (28.0-33.3); Mean Corpuscular Volume 90.2 fL (83.0-100.0); Mean Platelet Volume 9.9 fL (9.4-12.4); Monocytes # 0.5 K/mcL (0.0-1.3); Monocytes % 5.9 %; Neutrophils # 4.8 K/mcL (1.6-8.9); Platelet Count 174 K/mcL (140-400); Red Blood Count 3.68 M/mcL (3.82-4.97); Red Cell Distribution Width 13.3 % (11.5-14.5); Segmented Neutrophils % 56.6 %; White Blood Count 8.5 K/mcL (4.3-11.1)
[2022-06-05 00:53] LABS: BUN/Creatinine Ratio 15 (6-26); Blood Urea Nitrogen 9 mg/dL (6-20); Calcium 8.9 mg/dL (8.6-10.3); Carbon Dioxide 24 mEq/L (23-29); Chloride 103 mEq/L (98-107); Glucose 116 mg/dL (70-105); Osmolality,Calculated 276 (280-300); Potassium 3.5 mEq/L (3.5-5.1); Sodium 133 mEq/L (136-145); eGFR For African Americans > 60 (> 60); eGFR For Non-African Americans > 60 (> 60)
[2022-06-05] MEDS ORDERED: cephALEXin 500 MG CAPSULE PO ONE (03:37)
[2022-06-05 07:28] VITALS: BP 95/60; PULSE 61; TEMP 97.9; O2SAT 98
[2022-06-05 10:21] LABS: Basophils % 0.2 %; Eosinophils # 0.1 K/mcL (0.0-0.6); Eosinophils % 1.4 %; Hematocrit 31.9 % (35.3-44.9); Hemoglobin 10.5 g/dL (11.5-15.4); Immature Granulocytes % 0.2 % (0-4); Lymphocytes # 1.9 K/mcL (0.6-4.6); Lymphocytes % 29.5 %; Mean Corpuscular HGB Conc 32.9 g/dL (31.6-35.5); Mean Corpuscular Hemoglobin 29.7 pg (28.0-33.3); Mean Corpuscular Volume 90.4 fL (83.0-100.0); Mean Platelet Volume 9.9 fL (9.4-12.4); Monocytes # 0.5 K/mcL (0.0-1.3); Monocytes % 7.2 %; Platelet Count 155 K/mcL (140-400); Red Blood Count 3.53 M/mcL (3.82-4.97); Red Cell Distribution Width 13.7 % (11.5-14.5); Segmented Neutrophils % 61.5 %; White Blood Count 6.4 K/mcL (4.3-11.1)
[2022-06-05 10:41] LABS: Alanine Aminotransferase 18 Units/L (7-52); Aspartate Amino Transferase 15 Units/L (13-39); BUN/Creatinine Ratio 12 (6-26); Blood Urea Nitrogen 7 mg/dL (6-20); Lactate Dehydrogenase 88 Units/L (140-271); Uric Acid 3.9 mg/dL (2.3-7.6); eGFR For African Americans > 60 (> 60); eGFR For Non-African Americans > 60 (> 60)
[2022-06-05 12:24] LABS: Candida DNA Not Detected (Not Detect); Gardnerella DNA DETECTED (Not Detect); Trichomonas DNA Not Detected (Not Detect)
[2022-06-05 13:12] LABS: Amphetamine Screen,Urine Negative ng/mL (Cutoff=1000); Barbiturate Screen,Urine Negative ng/mL (Cutoff=200); Benzodiazepines Screen,Urine Negative ng/mL (Cutoff=200); Cannabinoid Screen,Urine Positive ng/mL (Cutoff = 50); Cocaine Screen,Urine Negative ng/mL (Cutoff= 300); Opiate Screen,Urine Negative ng/mL (Cutoff=300); Phencyclidine Screen,Urine Negative ng/mL (Cutoff=25)
[2022-06-05 16:58] LABS: Hepatitis B Surface Antigen Nonreactive (Nonreactive)
[2022-06-05 17:30] LABS: HIV-1&2 Antibody & p24 Ag Nonreactive (Nonreactive)
[2022-06-05 18:18] LABS: Varicella Zoster IgG Antibody Positive
[2022-06-05 18:24] LABS: Rubella IgG Antibody POSITIVE (POSITIVE)
== END 2022-06-05 14:54 | disposition home or self-care (01) ==
LOC: 1NENUOBS 20:45 → EMEROOARM 20:45 → 1NENUOBS 06-05 04:00
PROVIDERS: ADMIT Obstetrics & Gynecology; ATTEND Obstetrics & Gynecology